=== PATIENT | male | born 2000 | race Caucasian/White ===

== ENCOUNTER 2022-01-12 20:45 | Emergency (ER) | payer BC, OTHER ==
[2022-01-12] MEDS ORDERED: ONDANSETRON HCL 4 MG/2 ML VIAL IVP ONE (21:15)
[2022-01-12] MEDS ORDERED: fentaNYL CITRATE/PF 100 MCG/2 ML AMP IVP ONE (21:15)
--- NOTE | 2022-01-12 21:23 | NUR ---
Shoulder re-set successful for patient. Sling applied to arm. Awaiting repeat xray at this time.
--- NOTE | 2022-01-12 21:35 | NUR ---
Patient taken to xray.
[2022-01-12] MEDS ORDERED: TRAM50TA PO ×2 (21:45→22:08)
[2022-01-12 22:02] VITALS: BP_SYST 148
--- NOTE | 2022-01-12 22:06 | NUR ---
Patient given written and verbal discharge instructions and verbalizes understanding. ER MD discussed with patient the results and treatment provided. Patient in stable condition. ID arm band removed. IV catheter removed intact and dressing applied, no active bleeding. Rx of tramadol given. Patient educated on pain management and to follow up with PMD. Pain Scale . Opportunity for questions provided and answered. Medication side effect fact sheet provided.
== END 2022-01-12 22:06 | disposition home or self-care (01) ==
LOC: SED 20:45
DX: S43.014A Anterior dislocation of right humerus, initial encounter (principal); W50.0XXA Accidental hit or strike by another person, initial encounter; Y93.43 Activity, gymnastics; Y92.89 Other specified places as the place of occurrence of the external cause; Y99.8 Other external cause status
CPT/HCPCS: 23650; 73030; 96374; 96375; 99284; J2405; J3010